=== PATIENT | male | born 1995 | race African-American/Black ===

== ENCOUNTER 2016-05-16 16:33 | Emergency (ER) | payer OTHER ==
[~2016-05-16] VITALS: Ht 170.2 cm; Wt 64.7 kg
[~2016-05-16 16:33] MED LIST: KETO10TA PO; OXYC-57 PO
[2016-05-16 16:41] VITALS: TEMP 37.2
[2016-05-16] MEDS ORDERED: ONDANSETRON INJ 2 MG/ML 2 ML VIAL IV STA (17:03)
[2016-05-16] MEDS ORDERED: AMOXICILLIN/CLAVULANATE TAB 875 MG TAB PO STA (17:03)
[2016-05-16] MEDS ORDERED: MoRPHine SULFATE 10 MG/ML CARP/VIAL IV STA (17:03)
[2016-05-16] MEDS ORDERED: MoRPHine SULFATE 2 MG/ML CARP ONE (17:24)
[2016-05-16] MEDS ORDERED: MoRPHine SULFATE 4 MG/ML 1 ML CARP\\VIAL ONE (17:24)
[2016-05-16 17:39] LABS: BASO % 0.1 %; BASO ABS # 0.01 K/uL (0-0.2); COMPLETE YES; EOS % 0.4 %; HEMATOCRIT 37.8 % (42-52); IG% 0.4 %; LYMPH % 21.8 %; LYMPH ABS # 1.58 K/uL (1.2-3.4); MEAN CELL VOLUME 83.1 fL (80-100); MEAN CORPUSCULAR HEMOGLOBIN 29.7 pg (25-34); MEAN CORPUSCULAR HGB CONC 35.7 g/dl (32-36); MEAN PLATELET VOLUME 8.8 fL (7.4-10.4); MONO % 5.9 %; NEUT % 71.4 %; PLATELET COUNT 214 K/uL (130-400); RED BLOOD COUNT 4.55 M/uL (4.7-6.1); WHITE BLOOD COUNT 7.24 K/uL (4.8-10.8)
[2016-05-16 17:55] LABS: BLOOD UREA NITROGEN 18 mg/dl (7-18); BUN/CREATININE RATIO 15.2 (10-20); CALCIUM 9.4 mg/dl (8.5-10.1); CARBON DIOXIDE 23 mmol/L (21-32); CHLORIDE 107 mmol/L (98-107); GLUCOSE 71 mg/dl (70-99); POTASSIUM 3.4 mmol/L (3.5-5.1); SODIUM 143 mmol/L (136-145)
[2016-05-16] MEDS ORDERED: DIPHTHERIA/TETANUS/PERTUSSIS 0.5 ML SYR/VIAL IM. ONE (18:00)
[2016-05-16] MEDS ORDERED: RABIES VACCINE (IMOVAX) HUMAN DIPL CELL 2.5 INTER.UNIT/ML SYR IM. ONE (18:00)
[2016-05-16] MEDS ORDERED: XYLOCAINE 1%/SOD BICARB 20 ML VIAL INFIL STA (18:01)
[2016-05-16 18:08] VITALS: Ht 170.2 cm; Wt 64.7 kg
[2016-05-16 18:21] LABS: URINE APPEARANCE CLEAR (CLEAR); URINE BILIRUBIN NEG (NEG); URINE COLOR YELLOW; URINE EPITHELIAL CELL AUTO >30 /lpf (0-5); URINE NITRITE NEG (NEG); URINE PH 6.5 (4.5-7.5); URINE SPECIFIC GRAVITY 1.025 (1.000-1.030); UROBILINOGEN NEG (NEG); ZZUR CULT IF INDIC CLEAN CATCH NO
[2016-05-16 18:29] LABS: MANUAL MICROSCOPIC REQUIRED? NO; REVIEW REQ? YES
[2016-05-16] MEDS ORDERED: RABIES IMMUNE GLOBULIN (HUMAN) 150 INTER.UNIT/ML 2 ML VIAL IM. ONE (18:30)
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
[2016-05-16] MEDS ORDERED: AMOX875T PO (18:36)
[2016-05-16 18:37] LABS: URINE MUCUS PRESENT (NONE PRSENT)
[2016-05-16] MEDS ORDERED: IBUPROFEN 600 MG TAB PO STA (19:58)
[2016-05-16] MEDS ORDERED: AMOXICIL/CLAVU 875MG HOME PACK PO STA (19:59)
[2016-05-16 20:14] VITALS: BP 151/85; PULSE 108; O2SAT 98
== END 2016-05-16 20:14 | disposition home or self-care (01) ==
LOC: EDBD 16:33 → C.EDD 16:34
DX: S31.159A Open bite of abdominal wall, unspecified quadrant without penetration into peritoneal cavity, initial encounter (principal); D64.9 Anemia, unspecified; E87.6 Hypokalemia; Z29.14 Encounter for prophylactic rabies immune globulin; Z20.3 Contact with and (suspected) exposure to rabies; Z23 Encounter for immunization; J45.909 Unspecified asthma, uncomplicated; W54.0XXA Bitten by dog, initial encounter; Y92.009 Unspecified place in unspecified non-institutional (private) residence as the place of occurrence of the external cause; Y99.8 Other external cause status

== ENCOUNTER 2016-05-19 22:21 | Emergency (ER) | payer OTHER ==
[~2016-05-19] VITALS: Ht 170.2 cm; Wt 65.4 kg
[~2016-05-19 22:21] MED LIST changes: +AMOX875T PO; -KETO10TA PO; -OXYC-57 PO
[2016-05-19 22:23] VITALS: TEMP 36.5; Ht 170.2 cm; Wt 65.4 kg
[2016-05-19] MEDS ORDERED: RABIES VACCINE (IMOVAX) HUMAN DIPL CELL 2.5 INTER.UNIT/ML SYR IM. ONE (22:30)
--- NOTE | 2016-05-19 22:31 | EMERGENCY ROOM VISIT NOTE ---
ED Visit Note First contact with patient: 22:27 CHIEF COMPLAINT: Rabies prophylaxis HISTORY OF PRESENT ILLNESS: This 21 yo patient presents to the emergency department for their 2nd rabies shot. The patient has not had any complications from the previous injections. They deny any other complaints. REVIEW OF SYSTEMS: A 6 system review of systems was completed with positives and pertinent negatives listed in the HPI. ALLERGIES: Lactose MEDICATIONS: Reviewed PMH: Unchanged from previous visit. PHYSICAL EXAM: Vital Signs: Reviewed Nurse's notes, vital signs stable. GENERAL : Pleasant male, in no acute distress, well-developed, well-nourished. HEAD: Atraumatic, without temporal or scalp tenderness. EYES: PERRLA, EOMI, no discharge or injection. SKIN: Normal. NEUROLOGICAL: Alert and cooperative. Sensory and motor functions grossly intact. EMERGENCY DEPARTMENT COURSE: I examined the patient. The patient was given rabies vaccine IM. The patient was observed for 20 minutes with no reaction. The patient was discharged home in stable condition. DIAGNOSIS: Rabies prophylaxis DISCHARGE INSTRUCTIONS: Continue vaccination schedule as directed. Return for any complications. Problem List Medical Problems: (1) Asthma Status: Chronic (2) Resolved shoulder dislocation Status: Resolved Current/Historical Medications Scheduled Amoxicillin & Pot Clavulanate (Augmentin 875-125 mg), 1 TAB PO BID Allergies Coded Allergies: Lactose. (Verified Allergy, Intermediate, GI symptoms, 02/21/16) Vital Signs Date Time Temp Pulse Resp B/P Pulse Ox O2 Delivery O2 Flow Rate FiO2 05/19/16 22:23 36.5 91 20 150/100 99 Room Air Departure Information Referrals No Doctor, Assigned (PCP) Patient Instructions My [facility]
[2016-05-19 23:00] VITALS: BP 128/73; PULSE 59; O2SAT 100
== END 2016-05-19 23:01 | disposition home or self-care (01) ==
LOC: C.EDB 22:22 → C.EDA 23:01
DX: Z23 Encounter for immunization (principal); Z20.3 Contact with and (suspected) exposure to rabies; J45.909 Unspecified asthma, uncomplicated

== ENCOUNTER 2016-05-23 09:07 | Emergency (ER) | payer OTHER ==
[~2016-05-23] VITALS: Ht 170.2 cm; Wt 64.0 kg
[2016-05-23 09:14] VITALS: BP 119/75; PULSE 62; TEMP 36.7; O2SAT 98; Ht 170.2 cm; Wt 64.0 kg
[2016-05-23] MEDS ORDERED: RABIES VACCINE (IMOVAX) HUMAN DIPL CELL 2.5 INTER.UNIT/ML SYR IM. ONE (09:32)
--- NOTE | 2016-05-23 09:45 | EMERGENCY ROOM VISIT NOTE ---
ED Visit Note First contact with patient: 09:19 Chief Complaint: "Rabies Shot" History of Present Illness: This patient is a 21-year-old male who presents to the Emergency Department via private vehicle coming by female for their third Rabies Vaccination Injections. The patient reports that they had no reaction to previous injection. Patient denies the development of any fevers, chills, sweats, or URI symptoms. He also states he is here to get his sutures removed. Medications: Unchanged from previous visit. Allergies: Lactose PMH: Unchanged from previous visit. SHx: Unchanged from previous visit ROS: All pertinent positive and negative review of systems are appropriately documented in the History of Present Illness. Physical Exam: VITAL SIGNS - Vital signs and Nursing Notes were reviewed. GENERAL -21-year-old male, well-developed, well-nourished, and in no acute distress. SKIN - Without rashes or lesions. The wound just superior to the genital region is well-healed. CARDIAC - RRR with normal S1 & S2. No murmurs, rubs, or gallops appreciated. RESPIRATORY - Clear to auscultation bilaterally. No wheezes, rales, or rhonchi appreciated. NEURO - Patient is A&Ox3 and communicates appropriately with the provider. ED Course: Previous ED visit note was reviewed by myself prior to patient evaluation. I am familiar with the patient's case and treated him upon his initial presentation with a dog bite. Patient reports no reaction to the previous injection(s). Patient received 2.5 in interunit of Imovax intramuscularly. Patient was observed in the Emergency Department for greater than 20 minutes prior to discharge without signs of reaction. Both of these sutures were removed from the wound. It appears to be well healed without dehiscence. Patient already this well. Patient was educated on worrisome symptoms for return visit to the Emergency Department. Patient discharged to home with the intent for follow-up in the Emergency Department as scheduled for the remainder of their injections. In evaluation treatment this patient the following differential diagnoses were entertained: Encounter for removal of sutures, infection, need for rabies prophylaxis. Problem List Medical Problems: (1) Asthma Status: Chronic (2) Resolved shoulder dislocation Status: Resolved Current/Historical Medications Scheduled Amoxicillin & Pot Clavulanate (Augmentin 875-125 mg), 1 TAB PO BID Allergies Coded Allergies: Lactose. (Verified Allergy, Intermediate, GI symptoms, 05/23/16) Vital Signs Date Time Temp Pulse Resp B/P Pulse Ox O2 Delivery O2 Flow Rate FiO2 05/23/16 09:14 36.7 62 16 119/75 98 Room Air Medications Administered Medications (Trade) Dose Ordered Sig/Alexander Route Start Time Stop Time Status Last Admin Dose Admin Rabies Vaccine Human Diploid Cell (Imovax Rabies) 2.5 interunit STK-MED ONCE IM. 05/23/16 09:32 05/23/16 09:34 DC 05/23/16 09:32 2.5 INTERUNIT Departure Information Impression Primary Impression: Rabies, need for prophylactic vaccination against Additional Impression: Encounter for removal of sutures Dispostion Home / Self-Care Condition GOOD Referrals No Doctor, Assigned (PCP) Patient Instructions My [facility] Additional Instructions Discharge Instructions: You were seen in the Emergency Department today for your Rabies Prophylaxis Injection. You should continue to follow the Discharge Instructions outlined for you in your initial Emergency Department visit. Please continue the antibiotic. Please watch for signs of infection around the area where I removed the sutures. For pain or fever control, you can use the following [id number] medicines (if >12 yo): - Regular strength (325mg/tab) Tylenol (acetaminophen) 2 tabs every 4-6 hours as needed. Do not exceed 12 tablets in a 24 hour period. Avoid taking more than 4 grams (4000 mg) of Tylenol per day. This includes any other sources of acetaminophen you may take on a regular basis. - Regular strength (200 mg/tab) Advil (ibuprofen) 1-2 tabs every 4-6 hours as needed. Do not exceed a dose of 3200 mg per day. Return to the emergency department if your symptoms worsen despite treatment course outlined above. Problem Qualifiers
== END 2016-05-23 10:03 | disposition home or self-care (01) ==
LOC: C.EDB 09:07 → C.EDA 10:03
DX: Z23 Encounter for immunization (principal); J45.909 Unspecified asthma, uncomplicated; Z87.828 Personal history of other (healed) physical injury and trauma; Z91.011 Allergy to milk products

== ENCOUNTER 2016-10-27 10:50 | Emergency (ER) | payer OTHER ==
[~2016-10-27] VITALS: Ht 170.2 cm; Wt 65.1 kg
[2016-10-27 10:56] VITALS: TEMP 36.5; Ht 170.2 cm; Wt 65.1 kg
[2016-10-27] MEDS ORDERED: IBUPROFEN 600 MG TAB PO STA (11:44)
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
[2016-10-27 14:11] VITALS: BP 134/76; PULSE 68; O2SAT 98
[2016-10-27] MEDS ORDERED: TRAM-10 PO (14:33)
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
== END 2016-10-27 14:41 | disposition home or self-care (01) ==
LOC: EDBD 10:50 → C.EDC 10:53
DX: S06.0X1A Concussion with loss of consciousness of 30 minutes or less, initial encounter (principal); Y04.0XXA Assault by unarmed brawl or fight, initial encounter; M25.511 Pain in right shoulder; M54.6 Pain in thoracic spine; Y92.89 Other specified places as the place of occurrence of the external cause; J45.909 Unspecified asthma, uncomplicated; F17.200 Nicotine dependence, unspecified, uncomplicated

== ENCOUNTER 2019-11-13 22:28 | Inpatient (IN) ==
[2019-11-13 22:54] LABS: Basophils # (auto) 0.02 K/uL (0-0.2); Basophils % (auto) 0.3 %; Eosinophils % (auto) 1.3 %; Hematocrit (blood only) 45.3 % (42-52); Hemoglobin 15.1 g/dL (14.0-18.0); Immature Granulocytes # (auto) 0.01 K/uL (0.00-0.02); Immature Granulocytes % (auto) 0.1 %; Lymphocytes # (auto) 2.58 K/uL (1.2-3.4); Lymphocytes % (auto) 33.8 %; Mean Corpuscular Hemoglobin 29.8 pg (25-34); Mean Corpuscular Hgb Conc 33.3 g/dL (32-36); Mean Corpuscular Volume 89.5 fL (80-100); Mean Platelet Volume 9.1 fL (7.4-10.4); Monocytes # (auto) 0.45 K/uL (0.11-0.59); Monocytes % (auto) 5.9 %; Neutrophils # (auto) 4.47 K/uL (1.4-6.5); Neutrophils % (auto) 58.6 %; Platelet Count 243 K/uL (130-400); RDW Coefficient of Variation 12.7 % (11.5-14.5); RDW Standard Deviation 41.3 fL (36.4-46.3); Red Blood Count 5.06 M/uL (4.7-6.1); White Blood Count 7.63 K/uL (4.8-10.8)
[2019-11-13 22:55] LABS: Appearance Urine Turbid (Clear); Bacteria Urine Automated Negative (Negative); Bilirubin Urine Negative (Negative); Blood Urine Negative (Negative); Color Urine Dark Yellow; Glucose Urine UA Negative (Negative); Ketones Urine Trace (Negative); Leukocyte Esterase Urine 1+ (Negative); Nitrite Urine Negative (Negative); Protein Urine Negative (Negative); RBC Urine Automated 0-4 /hpf (0-4); Specific Gravity Urine 1.025 (1.000-1.030); Urobilinogen Urine Negative (Negative); WBC Urine Automated >30 /hpf (0-5)
[2019-11-13 23:10] LABS: Amphetamines+Metham, Urine Neg (Neg); Barbiturates, Urine Neg (Neg); Benzodiazepine, Urine Neg (Neg); Cocaine, Urine Neg (Neg); MDMA (Ecstacy), Urine Neg (Neg); Methadone, Urine Neg (Neg); Opiate, Urine Neg (Neg); Phencyclidine, Urine Neg (Neg)
[2019-11-13 23:12] LABS: Albumin Level 4.4 gm/dl (3.4-5.0); BUN Creatinine Ratio 10.6 (10-20); Calcium 9.4 mg/dl (8.5-10.1); Creatinine Clr Calc Pharmacy 93.8 ml/min; Est GFR (African American) 108.8; Est GFR (Non-African American) 93.8; Potassium 3.3 mmol/L (3.5-5.1)
[2019-11-13 23:22] LABS: Albumin Globulin Ratio 1.2 (0.9-2); Bilirubin,Total 0.8 mg/dl (0.2-1); Globulin 3.8 gm/dl (2.5-4.0); Thyroid Stimulating Hormone 1.76 uIu/ml (0.300-4.500); Total Protein 8.2 gm/dl (6.4-8.2)
[2019-11-13 23:30] LABS: Acetaminophen < 2 ug/ml (10-30); Salicylate < 1.7 mg/dl (2.8-20)
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
[2019-11-14 00:17] VITALS: O2SAT 100
--- NOTE | 2019-11-14 01:59 | Emergency Department Note ---
ED Visit Note This case was signed out to me at change of shift awaiting bed placement. The patient is willing to admit himself voluntarily for inpatient psychiatric care. He was evaluated by staff from [facility] [address] and they have accepted him. .
[2019-11-14] MEDS ORDERED: ACETAMINOPHEN 325 MG TAB PO PRN (04:53)
[2019-11-14] MEDS ORDERED: BISMUTH SUBSALICYLATE PER ML OMNICELL CHARGE PO PRN (04:53)
[2019-11-14] MEDS ORDERED: SODIUM CHLORIDE 0.65% NA SOLN 45 ML (OCEAN) PRN (04:53)
[2019-11-14] MEDS ORDERED: ALUMINUM/MAGNESIUM SUSP 30 ML UDC PO PRN (04:53)
[2019-11-14] MEDS ORDERED: MAGNESIUM HYDROXIDE SUSP 30 ML UDC PO PRN (04:53)
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
[2019-11-15] MEDS: VENLAFAXINE HCL XR 37.5 MG CAPXR PO SCH (10:53)
--- NOTE | 2019-11-15 11:48 | Psychiatric Progress Note ---
Date of Service November 15, 2019 Impression / Recommendations Impression This 24-year-old man gives a compelling history of major depression, beginning during adolescence, within the context of multiple losses and substantial psychosocial stressors. He has a large number of assets, including intelligence, compassion, good social skills, and a desire for self improvement. However, in addition to being depressed he admits that he has a lot of difficulty trusting other people. His lack of trust is nondelusional, and he attributes it to the fact that he feels as if he has been let down over the years by people who he has been willing to trustincluding family members (his mother essentially abandoned him at the age of 6) and various friends. He notes that the only person in his life, other than his grandmother, who he felt he could trust implicitly was a close friend who is 1 years his nataliia and who was killed fairly recently as an innocent bystander in a drive by shooting. The patient notes that he is always struggled to do the right thing and, for example, notes that he has always been a conscientious worker and employee and has often worked more than 1 job in order to maintain an adequate income. 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 He eventually found himself unemployed. Also, he had been caring for his young son because the son's mother was, according the patient, not caring for the child and was often absent from the home. However, his decision to care for the son violated a court order for protection, filed by the child's mother. The patient points out that the child's mother was fully aware that the patient was caring for their son and, in fact, did not object for several monthsand then threatened several times to call the police when she became angry at the patient. He certainly meets criteria for major depressive disorder. He also is going to need assistance with his financial situation, including helping him apply for unemployment benefits. Also, we are encouraging the patient to consider this as an opportunity to either begin college (through remote learning) or obtain vocational training so that he would be more likely to be employed in the future. We will start an antidepressant medication. He notes that he thinks Zoloft was the medicine that he had previously taken that did not work or that made him feel "worse." He was educated about the nature of antidepressant medications and the fact that many will cause certain side effects and even make the patient feel worse temporarily, but that the side effects generally improve or resolve and it may take several weeks to a month or more for the benefit to be appreciated. 11/14--reviewed, now accepting of Effexor trial. (1) Suicidal behavior without attempted self-injury: 11/14 reviewed (2) Depression: 11/14/19 -Patient reports that he has been depressed for about 9 years or more, with symptoms that include depressed mood, crying spells, apathy, anergia, psychosocial withdrawal, insomnia, and suicidal ruminations. -The patient has sustained a number of significant losses and catastrophic psychosocial stressors. Within this context, he acknowledges that he does have suicidal thoughts. He also reports that he has plans for the future and is eager to receive active treatment for his depression. -We will begin venlafaxine ER 37.5 mg daily and titrate as indicated. Material risks and anticipated benefits of venlafaxine have been reviewed with the patient. He asked several questions and then indicated understanding. -As part of the patient's depression he reports chronic insomnia. He is being encouraged to request hydroxyzine at bedtime for sleep. If this is ineffective we will explore other options, such as trazodone for sleep. 11/15/19--reviewed. Agreed to Effexor XR trial, ordered as above. Inventory Assets Strengths: Intelligent. Hard-working. Conscientious. Devoted father. Needs: Improved self-esteem. Improve trust. Improved mood. Stable income. Vocational training. Risk Factors Assessment Male: Yes : No Do You Have Access To A Gun?: No (in or near [place], [place].) Health Problems: No Mental Health Diagnoses: Yes Substance Use Disorders: No Previous Attempt: No Family History of Suicide: No Previous Psychiatric Hospitalization: Yes Hopelessness: No Smoker: Yes Protective Factors Assessment Jehovah'S Witness Beliefs: No : No Responsible for Young Children: No (-Reviewed the patient is not responsible for his young son, but he would like to be and his hope is that he can have the court order reversed.) Employed: No Stable Relationships: Yes Supportive Family: Yes Good Rapport with Provider: No Absence of Any Risk Factors Above: No Interval History Chief Complaint "I'm have a lot going on but trying not to be angry". Review of Systems Sleep Information Total Hours of Sleep: 5.5 Sleep Comments: recieved two doses of prn hs vistaril for sleep aid Meal Information Percent Meal Consumed - Breakfast: 80 Percent Meal Consumed - Lunch: 25 Percent Meal Consumed - Dinner: 0 Subjective Subjective Patient was seen & assessed and interval progress reviewed with nursing and so pritil work. States he took Vistaril and a repeat at and it was helpful as falling asleep earlier than at home but still after 12:30 am. Admits to sleep phase shift with being off work. Denies suicidal thoughts today but at risk due to pending homelessness and arrest warrant for violating PFA. He reports being hesitant to start an antidepressant given hx of SSRI trial (not sure what) at age 15 leading to some emotional labilify. Denies hx of laexi. Physical Exam Psychiatric Orientation: alert, oriented x 3 and cooperative Apperance: appropriately dressed and appropriately groomed Eye Contact: + fair eye contact Motor Behavior: steady gait and station Speech: normal rate/rhythm/volume of speech Affect: + depressed affect Mood: + depressed mood Thought Process: goal directed thought process and linear/logical thought process Thought Content: reality based without delusions Suicidal Thoughts: denies suicidal thoughts Homicidal Thoughts: denies homicidal thoughts Hallucinations: no auditory hallucinations and no visual hallucinations Cognition: recent memory grossly intact, remote memory grossly intact, attention grossly intact and language grossly intact Estimated Intelligence: + above average estimated intelligence Insight: + fair insight Judgement: + fair judgement Vital Signs (Past 24 Hours) Last Vital Signs Temp 36.5 C 11/15/19 06:39 Pulse 73 11/15/19 06:40 Resp 18 11/15/19 06:39 BP 113/69 11/15/19 06:40 Pulse Ox 100 11/14/19 00:15 Results & Data ([facility]) Current Inpatient Medications Current Inpatient Medications: Current Inpatient Medications Acetaminophen (Tylenol) 650 mg PO Q4H PRN PRN Reason: Headache or Minor Fever Stop: 12/14/19 04:52 Al Hydrox/Mg Hydrox/Simethicone (Maalox) 30 ml PO Q4H PRN PRN Reason: GI Upset Stop: 12/14/19 04:52 Bismuth Subsalicylate (Kaopectate) 15 ml PO PRN PRN PRN Reason: Loose Stool Stop: 12/14/19 04:52 Hydroxyzine HCl (Vistaril) 50 mg PO HSZ PRN PRN Reason: Insomnia Stop: 12/14/19 04:52 Last Admin: 11/14/19 23:12 Dose: 50 mg Documented by: Hydroxyzine HCl (Vistaril) 25 mg PO Q4H PRN PRN Reason: Anxiety Stop: 12/14/19 04:52 Hydroxyzine HCl (Vistaril) 75 mg PO HS NIKOS Stop: 12/15/19 21:59 Magnesium Hydroxide (Milk Of Magnesia) 30 ml PO DAILY PRN PRN Reason: Constipation Stop: 12/14/19 04:52 Sodium Chloride ([place] Nasal) 1 - 2 sprays NA PRN PRN PRN Reason: Nasal Dryness/Congestion Stop: 12/14/19 04:52 Venlafaxine HCl (Effexor Extended Release) 37.5 mg PO QAM NIKOS Stop: 12/15/19 09:59 Last Admin: 11/15/19 10:53 Dose: 37.5 mg Documented by:
[2019-11-16] MEDS: VENLAFAXINE HCL XR 37.5 MG CAPXR PO SCH (09:05)
--- NOTE | 2019-11-16 10:56 | Psychiatric Progress Note ---
Date of Service November 16, 2019 Impression / Recommendations Impression This 24-year-old man gives a compelling history of major depression, beginning during adolescence, within the context of multiple losses and substantial psychosocial stressors. He has a large number of assets, including intelligence, compassion, good social skills, and a desire for self improvement. However, in addition to being depressed he admits that he has a lot of difficulty trusting other people. His lack of trust is nondelusional, and he attributes it to the fact that he feels as if he has been let down over the years by people who he has been willing to trustincluding family members (his mother essentially abandoned him at the age of 6) and various friends. He notes that the only person in his life, other than his grandmother, who he felt he could trust implicitly was a close friend who is 1 years his nataliia and who was killed fairly recently as an innocent bystander in a drive by shooting. The patient notes that he is always struggled to do the right thing and, for example, notes that he has always been a conscientious worker and employee and has often worked more than 1 job in order to maintain an adequate income. 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 He eventually found himself unemployed. Also, he had been caring for his young son because the son's mother was, according the patient, not caring for the child and was often absent from the home. However, his decision to care for the son violated a court order for protection, filed by the child's mother. The patient points out that the child's mother was fully aware that the patient was caring for their son and, in fact, did not object for several monthsand then threatened several times to call the police when she became angry at the patient. He certainly meets criteria for major depressive disorder. He also is going to need assistance with his financial situation, including helping him apply for unemployment benefits. Also, we are encouraging the patient to consider this as an opportunity to either begin college (through remote learning) or obtain vocational training so that he would be more likely to be employed in the future. We will start an antidepressant medication. He notes that he thinks Zoloft was the medicine that he had previously taken that did not work or that made him feel "worse." He was educated about the nature of antidepressant medications and the fact that many will cause certain side effects and even make the patient feel worse temporarily, but that the side effects generally improve or resolve and it may take several weeks to a month or more for the benefit to be appreciated. 11/14--reviewed, now accepting of Effexor trial. 11/15--worse in context of pending arrest (1) Suicidal behavior without attempted self-injury: 11/14 reviewed (2) Depression: 11/14/19 -Patient reports that he has been depressed for about 9 years or more, with symptoms that include depressed mood, crying spells, apathy, anergia, psychosocial withdrawal, insomnia, and suicidal ruminations. -The patient has sustained a number of significant losses and catastrophic psychosocial stressors. Within this context, he acknowledges that he does have suicidal thoughts. He also reports that he has plans for the future and is eager to receive active treatment for his depression. -We will begin venlafaxine ER 37.5 mg daily and titrate as indicated. Material risks and anticipated benefits of venlafaxine have been reviewed with the patient. He asked several questions and then indicated understanding. -As part of the patient's depression he reports chronic insomnia. He is being encouraged to request hydroxyzine at bedtime for sleep. If this is ineffective we will explore other options, such as trazodone for sleep. 11/15/19--reviewed. Agreed to Effexor XR trial, ordered as above. 11/16/19--tolerating Effexor, worse due to finding out about pending arrest, likely increase tomorrow. Inventory Assets Strengths: Intelligent. Hard-working. Conscientious. Devoted father. Needs: Improved self-esteem. Improve trust. Improved mood. Stable income. Vocational training. Risk Factors Assessment Male: Yes : No Do You Have Access To A Gun?: No (in or near [place], [place].) Health Problems: No Mental Health Diagnoses: Yes Substance Use Disorders: No Previous Attempt: No Family History of Suicide: No Previous Psychiatric Hospitalization: Yes Hopelessness: No Smoker: Yes Protective Factors Assessment Zoroastrianism Beliefs: No : No Responsible for Young Children: No (-Reviewed the patient is not responsible for his young son, but he would like to be and his hope is that he can have the court order reversed.) Employed: No Stable Relationships: Yes Supportive Family: Yes Good Rapport with Provider: No Absence of Any Risk Factors Above: No Interval History Chief Complaint "i just want to lie down and not be [place] anymore". Review of Systems Sleep Information Total Hours of Sleep: 5.5 Sleep Comments: received his 75mg of hs vistaril at 2151. he watched tv/talked with peer till midnight. he was asleep by 0030. Meal Information Percent Meal Consumed - Breakfast: 50 Percent Meal Consumed - Lunch: 100 Percent Meal Consumed - Dinner: 100 Subjective Subjective Patient was seen & assessed and interval progress reviewed with nursing and social work. Patient had a good day yesterday but this am found out more details of his arrest warrant and now just wants to "give up". States that all of his interactions seem outside of him or fake and regrets having a child. Sees himself as someone who will never catch a break and doesn't see any way he can afford probation so mentally preparing to serve 6 months. States "i'm just going to take it", doesn't even want to involve his activities counselor. Physical Exam Psychiatric Orientation: alert Apperance: + disheveled Eye Contact: + poor eye contact Motor Behavior: steady gait and station Speech: normal rate/rhythm/volume of speech Affect: + depressed affect and + tearful affect Mood: + depressed mood Thought Process: linear/logical thought process Thought Content: reality based without delusions passive SI due to stress, no intent or plan on unit, unable to contract for safety outside of the hospital. Homicidal Thoughts: denies homicidal thoughts Hallucinations: no auditory hallucinations and no visual hallucinations Insight: + limited insight Judgement: + limited judgement Vital Signs (Past 24 Hours) Last Vital Signs Temp 36.6 C 11/16/19 06:37 Pulse 67 11/16/19 06:37 Resp 18 11/16/19 06:37 BP 126/77 11/16/19 06:37 Pulse Ox 100 11/14/19 00:15 Results & Data ([facility]) Current Inpatient Medications Current Inpatient Medications: Current Inpatient Medications Acetaminophen (Tylenol) 650 mg PO Q4H PRN PRN Reason: Headache or Minor Fever Stop: 12/14/19 04:52 Al Hydrox/Mg Hydrox/Simethicone (Maalox) 30 ml PO Q4H PRN PRN Reason: GI Upset Stop: 12/14/19 04:52 Bismuth Subsalicylate (Kaopectate) 15 ml PO PRN PRN PRN Reason: Loose Stool Stop: 12/14/19 04:52 Hydroxyzine HCl (Vistaril) 50 mg PO HSZ PRN PRN Reason: Insomnia Stop: 12/14/19 04:52 Last Admin: 11/14/19 23:12 Dose: 50 mg Documented by: Hydroxyzine HCl (Vistaril) 25 mg PO Q4H PRN PRN Reason: Anxiety Stop: 12/14/19 04:52 Last Admin: 11/16/19 09:32 Dose: 25 mg Documented by: Hydroxyzine HCl (Vistaril) 75 mg PO HS NIKOS Stop: 12/15/19 21:59 Last Admin: 11/15/19 21:51 Dose: 75 mg Documented by: Magnesium Hydroxide (Milk Of Magnesia) 30 ml PO DAILY PRN PRN Reason: Constipation Stop: 12/14/19 04:52 Sodium Chloride ([place] Nasal) 1 - 2 sprays NA PRN PRN PRN Reason: Nasal Dryness/Congestion Stop: 12/14/19 04:52 Venlafaxine HCl (Effexor Extended Release) 37.5 mg PO QAM NIKOS Stop: 12/15/19 09:59 Last Admin: 11/16/19 09:05 Dose: 37.5 mg Documented by: Mental Health & Subst Abuse Tx Psychiatrist Name of Psychiatrist: work with [facility] Psychiatrist's Therapist Name of Therapist: Work with [facility] Therapist's Orchestra Leader Name of Orchestra Leader: [facility] Phone Number for Orchestra Leader: [phone]
[2019-11-16 11:03] LABS: Marijuana Quant, GCMS Urine 592 ng/mL (<5)
[2019-11-17] MEDS: VENLAFAXINE HCL XR 37.5 MG CAPXR PO SCH (08:44)
[2019-11-17] MEDS ORDERED: VENLAFAXINE HCL XR 37.5 MG CAPXR PO ONE (10:21)
--- NOTE | 2019-11-17 13:40 | Psychiatric Progress Note ---
Date of Service November 17, 2019 Impression / Recommendations Impression This 24-year-old man gives a compelling history of major depression, beginning during adolescence, within the context of multiple losses and substantial psychosocial stressors. He has a large number of assets, including intelligence, compassion, good social skills, and a desire for self improvement. However, in addition to being depressed he admits that he has a lot of difficulty trusting other people. His lack of trust is nondelusional, and he attributes it to the fact that he feels as if he has been let down over the years by people who he has been willing to trustincluding family members (his mother essentially abandoned him at the age of 6) and various friends. He notes that the only person in his life, other than his grandmother, who he felt he could trust implicitly was a close friend who is 1 years his nataliia and who was killed fairly recently as an innocent bystander in a drive by shooting. The patient notes that he is always struggled to do the right thing and, for example, notes that he has always been a conscientious worker and employee and has often worked more than 1 job in order to maintain an adequate income. 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 He eventually found himself unemployed. Also, he had been caring for his young son because the son's mother was, according the patient, not caring for the child and was often absent from the home. However, his decision to care for the son violated a court order for protection, filed by the child's mother. The patient points out that the child's mother was fully aware that the patient was caring for their son and, in fact, did not object for several monthsand then threatened several times to call the police when she became angry at the patient. He certainly meets criteria for major depressive disorder. He also is going to need assistance with his financial situation, including helping him apply for unemployment benefits. Also, we are encouraging the patient to consider this as an opportunity to either begin college (through remote learning) or obtain vocational training so that he would be more likely to be employed in the future. We will start an antidepressant medication. He notes that he thinks Zoloft was the medicine that he had previously taken that did not work or that made him feel "worse." He was educated about the nature of antidepressant medications and the fact that many will cause certain side effects and even make the patient feel worse temporarily, but that the side effects generally improve or resolve and it may take several weeks to a month or more for the benefit to be appreciated. 11/14--reviewed, now accepting of Effexor trial. 11/15--worse in context of pending arrest 11/16--some improvement but not sustained (1) Suicidal behavior without attempted self-injury: 11/14 reviewed (2) Depression: 11/14/19 -Patient reports that he has been depressed for about 9 years or more, with symptoms that include depressed mood, crying spells, apathy, anergia, psychosocial withdrawal, insomnia, and suicidal ruminations. -The patient has sustained a number of significant losses and catastrophic psychosocial stressors. Within this context, he acknowledges that he does have suicidal thoughts. He also reports that he has plans for the future and is eager to receive active treatment for his depression. -We will begin venlafaxine ER 37.5 mg daily and titrate as indicated. Material risks and anticipated benefits of venlafaxine have been reviewed with the patient. He asked several questions and then indicated understanding. -As part of the patient's depression he reports chronic insomnia. He is being encouraged to request hydroxyzine at bedtime for sleep. If this is ineffective we will explore other options, such as trazodone for sleep. 11/15/19--reviewed. Agreed to Effexor XR trial, ordered as above. 11/16/19--tolerating Effexor, worse due to finding out about pending arrest, likely increase tomorrow. 11/17/19--increase Effexor to 75 mg starting today. Inventory Assets Strengths: Intelligent. Hard-working. Conscientious. Devoted father. Needs: Improved self-esteem. Improve trust. Improved mood. Stable income. Vocational training. Risk Factors Assessment Male: Yes : No Do You Have Access To A Gun?: No (in or near [place], [place].) Health Problems: No Mental Health Diagnoses: Yes Substance Use Disorders: No Previous Attempt: No Family History of Suicide: No Previous Psychiatric Hospitalization: Yes Hopelessness: No Smoker: Yes Protective Factors Assessment Orthodox Beliefs: No : No Responsible for Young Children: No (-Reviewed the patient is not responsible for his young son, but he would like to be and his hope is that he can have the court order reversed.) Employed: No Stable Relationships: Yes Supportive Family: Yes Good Rapport with Provider: No Absence of Any Risk Factors Above: No Interval History Chief Complaint "I'm feeling more like I can handle whatever today". Review of Systems Sleep Information Total Hours of Sleep: 6 Sleep Comments: received his 75mg of hs vistaril at 2151. he watched tv/talked with peer till midnight. he was asleep by 0030. Meal Information Percent Meal Consumed - Breakfast: 100 Percent Meal Consumed - Lunch: 100 Percent Meal Consumed - Dinner: 100 Subjective Subjective Patient was seen & assessed and interval progress reviewed with treatment team. Patient states that he benefited from peer support yesterday. Denies medication side effects. Is more accepting of pending arrest. Able to smile at times. Physical Exam Psychiatric Orientation: alert Apperance: appropriately dressed and appropriately groomed Eye Contact: good eye contact Motor Behavior: no abnormal motor movements Speech: normal rate/rhythm/volume of speech Affect: + depressed affect Mood: + depressed mood Thought Process: linear/logical thought process Thought Content: reality based without delusions Suicidal Thoughts: denies suicidal thoughts Homicidal Thoughts: denies homicidal thoughts Hallucinations: no auditory hallucinations and no visual hallucinations Insight: + limited insight Judgement: + limited judgement Vital Signs (Past 24 Hours) Last Vital Signs Temp 36.6 C 11/17/19 07:01 Pulse 60 11/17/19 07:01 Resp 16 11/17/19 07:01 BP 125/87 11/17/19 07:01 Pulse Ox 100 11/14/19 00:15 Results & Data ([facility]) Current Inpatient Medications Current Inpatient Medications: Current Inpatient Medications Acetaminophen (Tylenol) 650 mg PO Q4H PRN PRN Reason: Headache or Minor Fever Stop: 12/14/19 04:52 Al Hydrox/Mg Hydrox/Simethicone (Maalox) 30 ml PO Q4H PRN PRN Reason: GI Upset Stop: 12/14/19 04:52 Bismuth Subsalicylate (Kaopectate) 15 ml PO PRN PRN PRN Reason: Loose Stool Stop: 12/14/19 04:52 Hydroxyzine HCl (Vistaril) 50 mg PO HSZ PRN PRN Reason: Insomnia Stop: 12/14/19 04:52 Last Admin: 11/14/19 23:12 Dose: 50 mg Documented by: Hydroxyzine HCl (Vistaril) 25 mg PO Q4H PRN PRN Reason: Anxiety Stop: 12/14/19 04:52 Last Admin: 11/16/19 09:32 Dose: 25 mg Documented by: Hydroxyzine HCl (Vistaril) 75 mg PO HS NIKOS Stop: 12/15/19 21:59 Last Admin: 11/16/19 22:48 Dose: 75 mg Documented by: Magnesium Hydroxide (Milk Of Magnesia) 30 ml PO DAILY PRN PRN Reason: Constipation Stop: 12/14/19 04:52 Sodium Chloride ([place] Nasal) 1 - 2 sprays NA PRN PRN PRN Reason: Nasal Dryness/Congestion Stop: 12/14/19 04:52 Venlafaxine HCl (Effexor Extended Release) 75 mg PO QAM [facility] Stop: 12/18/19 08:59 Mental Health & Subst Abuse Tx Psychiatrist Name of Psychiatrist: work with [facility] Psychiatrist's Therapist Name of Therapist: Work with [facility] Therapist's Nurse Emergency Name of Nurse Emergency: [facility] Phone Number for Nurse Emergency: [phone]
[2019-11-18 06:33] VITALS: TEMP 98.4
[2019-11-18] MEDS ORDERED: VENLAFAXINE HCL XR 75 MG CAPXR PO SCH (09:00)
[2019-11-18 11:21] VITALS: BP 136/92; PULSE 89
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
== END 2019-11-18 11:33 | DRG 885 ==
LOC: ED 22:28 → 3S 11-14 03:11